=== PATIENT | male | born 1955 | race Caucasian/White ===

== ENCOUNTER 2018-08-01 02:20 | Emergency (ER) | payer MEDICARE, MEDICAID ==
[~2018-08-01] VITALS: Ht 170.2 cm; Wt 96.0 kg
[2018-08-01] MEDS ORDERED: ONDANSETRON HCL 4MG/2ML INJ IV STA (02:50)
[2018-08-01] MEDS ORDERED: SODIUM CHLORIDE 0.9% 1,000 ML IV ONE (02:50)
[2018-08-01] MEDS ORDERED: KETOROLAC 30MG/ML VIAL IV STA (02:50)
[2018-08-01 03:24] LABS: CHLORIDE 108 mEq/L (98-107)
[2018-08-01 03:25] LABS: CLARITY URINE CLEAR (CLEAR); COLOR URINE YELLOW (YELLOW); KETONES URINE TRACE (NEGATIVE); LEUKOCYTE ESTERASE URINE NEGATIVE (NEGATIVE); NITRITE URINE NEGATIVE (NEGATIVE); OCCULT BLOOD URINE NEGATIVE (NEGATIVE); PH URINE 5.5 (4.5-8.0); PROTEIN URINE TRACE (NEGATIVE); UROBILINOGEN URINE 0.2 E.U./dL (0.2-1.0)
[2018-08-01 03:26] LABS: EOSINOPHILS % 0.9 % (0.0-5.0); HEMATOCRIT. 45.1 % (42.0-52.0); HEMOGLOBIN. 15.9 g/dL (14.0-18.0); MEAN CORPUSCULAR HEMOGLOBIN 30.3 pg (28.0-32.0); MEAN CORPUSCULAR VOLUME 85.9 fL (80.0-94.0); MEAN PLATELET VOLUME 7.1 fl (7.4-10.4); MONOCYTES % 5.1 % (2.0-8.0); PLATELET 308 x1000/uL (130-400); RED BLOOD CELL COUNT 5.25 mill/uL (4.7-6.1); RED CELL DISTRIBUTION WIDTH 13.7 % (11.6-14.6)
[2018-08-01] MEDS ORDERED: TAMSULOSIN HCL 0.4MG SR CAPSULE PO ONE (04:15)
[2018-08-01 05:55] VITALS: BP 138/86
== END 2018-08-01 06:13 | disposition home or self-care (01) ==
LOC: ER 02:20
DX: N20.1 Calculus of ureter (principal); E11.9 Type 2 diabetes mellitus without complications; I10 Essential (primary) hypertension; E78.00 Pure hypercholesterolemia, unspecified
CPT/HCPCS: 36415; 74176; 80053; 81003; 83690; 85025; 96361; 96374; 96375; 99284; J1885; J2405; J7030

== ENCOUNTER 2022-03-11 07:18 | Emergency (ER) | payer MEDICARE ==
[~2022-03-11] VITALS: Ht 167.6 cm; Wt 98.0 kg
[~2022-03-11 07:18] MED LIST: IBUP-2029 MT
[2022-03-11] MEDS ORDERED: KETOROLAC 15MG/ML VIAL IV ONE (08:30)
[2022-03-11 09:18] VITALS: BP 142/88
[2022-03-11 09:29] LABS: CLARITY URINE CLEAR (CLEAR); COLOR URINE YELLOW (YELLOW); HEMATOCRIT. 46.7 % (42.0-52.0); HEMOGLOBIN. 16.3 g/dL (14.0-18.0); KETONES URINE 3+ (NEGATIVE); LEUKOCYTE ESTERASE URINE NEGATIVE (NEGATIVE); MEAN CORPUSCULAR HEMOGLOBIN 29.8 pg (28.0-32.0); MEAN CORPUSCULAR VOLUME 85.5 fL (80.0-94.0); NITRITE URINE NEGATIVE (NEGATIVE); OCCULT BLOOD URINE TRACE (NEGATIVE); PLATELET 318 x1000/uL (130-400); PROTEIN URINE 1+ (NEGATIVE); RED BLOOD CELL COUNT 5.46 mill/uL (4.7-6.1); RED CELL DISTRIBUTION WIDTH 13.8 % (11.6-14.6); SPECIFIC GRAVITY URINE 1.037 (1.005-1.030); UROBILINOGEN URINE 0.2 E.U./dL (0.2-1.0)
[2022-03-11 09:30] LABS: CHLORIDE 99 mEq/L (98-107)
[2022-03-11] MEDS ORDERED: SODIUM CHLORIDE 0.9% 1,000 ML IV ONE (10:15)
[2022-03-11 10:25] LABS: PLATELET ESTIMATE NORMAL
[2022-03-11] MEDS ORDERED: HYDR-4001 MT (12:45)
== END 2022-03-11 13:23 | disposition home or self-care (01) ==
LOC: ER 07:18
DX: R10.30 Lower abdominal pain, unspecified (principal); D72.825 Bandemia; E11.65 Type 2 diabetes mellitus with hyperglycemia; I10 Essential (primary) hypertension; M79.662 Pain in left lower leg; M79.661 Pain in right lower leg; Z87.898 Personal history of other specified conditions
CPT/HCPCS: 36415; 71045; 74176; 80053; 81003; 83605; 83690; 85025; 87040; 96374; 99285; J1885

== ENCOUNTER 2022-04-10 08:23 | Emergency (ER) | payer MEDICARE, OTHER ==
[~2022-04-10] VITALS: Ht 170.2 cm; Wt 82.0 kg
[~2022-04-10 08:23] MED LIST changes: +HYDR-4001 MT
[2022-04-10 08:28] VITALS: BP 174/99
[2022-04-10] MEDS ORDERED: TETANUS, DIPHTHERIA, PERTUSSIS VAC/PF 0.5ML (>10YR OLD) IM ONE (09:30)
[2022-04-10] MEDS ORDERED: LIDOCAINE HCL/PF 1% 10 MG/ML 5ML VIAL INFIL ONE (09:30)
[2022-04-10] MEDS ORDERED: HYDROCODONE/ACETAMINOPHEN 5/325MG TABLET PO ONE (09:30)
[2022-04-10] MEDS ORDERED: BACITRACIN ZINC OINT UDPKT TOP ONE (09:30)
[2022-04-10] MEDS ORDERED: BACL-141 MT (10:46)
[2022-04-10] MEDS ORDERED: ACET-2708 MT (10:46)
== END 2022-04-10 12:10 | disposition home or self-care (01) ==
LOC: ER 08:23
DX: S01.21XA Laceration without foreign body of nose, initial encounter (principal); S43.491A Other sprain of right shoulder joint, initial encounter; S70.01XA Contusion of right hip, initial encounter; I10 Essential (primary) hypertension; E11.9 Type 2 diabetes mellitus without complications; V03.19XA Pedestrian with other conveyance injured in collision with car, pick-up truck or van in traffic accident, initial encounter; Y93.89 Activity, other specified; Y92.488 Other paved roadways as the place of occurrence of the external cause; Y99.8 Other external cause status
CPT/HCPCS: 70450; 70486; 73030; 73502; 90471; 90715; 99285; J3490

== ENCOUNTER 2022-04-16 11:29 | Emergency (ER) | payer OTHER ==
[~2022-04-16] VITALS: Ht 175.3 cm; Wt 87.0 kg
[~2022-04-16 11:29] MED LIST changes: +ACET-2708 MT; +BACL-141 MT
[2022-04-16 11:59] VITALS: BP 138/79
== END 2022-04-16 14:47 | disposition home or self-care (01) ==
LOC: ER 11:29
DX: S01.21XD Laceration without foreign body of nose, subsequent encounter (principal); X58.XXXD Exposure to other specified factors, subsequent encounter; E11.9 Type 2 diabetes mellitus without complications; E78.00 Pure hypercholesterolemia, unspecified; I10 Essential (primary) hypertension; Z79.899 Other long term (current) drug therapy
CPT/HCPCS: 99281

== ENCOUNTER 2022-04-19 12:37 | Emergency (ER) | payer OTHER ==
[~2022-04-19] VITALS: Ht 170.2 cm; Wt 85.0 kg
[2022-04-19 14:06] VITALS: BP 150/102
== END 2022-04-19 16:21 | disposition home or self-care (01) ==
LOC: ER 12:37
DX: S01.21XD Laceration without foreign body of nose, subsequent encounter (principal); E11.9 Type 2 diabetes mellitus without complications; I10 Essential (primary) hypertension; E78.00 Pure hypercholesterolemia, unspecified; Z48.02 Encounter for removal of sutures; X58.XXXD Exposure to other specified factors, subsequent encounter
CPT/HCPCS: 99281